=== PATIENT | male | born 1970 | race Caucasian/White ===

== ENCOUNTER 2016-05-26 18:20 | Emergency (ER) | payer MEDICAID ==
[~2016-05-26] VITALS: Ht 162.6 cm; Wt 86.3 kg
[2016-05-26 18:28] VITALS: Ht 162.6 cm; Wt 86.3 kg
--- NOTE | 2016-05-26 19:05 | ERD ---
ER Documentation Chief Complaint Date/Time DATE: 05/26/16 TIME: 19:01 Chief Complaint Pt reports falling on escalator 1 week ago c/o r knee pain HPI 46-year-old male presents here in emergency department for complaints of right knee pain and right upper thigh pain and right lower leg pain after falling in an escalator one week ago. Patient noticed some bruising, complains of pain on the right knee, right thigh pain, right lower leg pain, throbbing pain, a physician scale, is worse upon movement and touching the area. Patient did not take medications of symptoms. Patient denies any deformity. Patient denies any numbness or tingling. Patient able to ambulate on it without any difficulty but with pain. ROS All systems reviewed and are negative except as per history of present illness. Medications Home Meds Reported Medications [none] Unknown Strength No Conflict Check 05/26/16 Allergies Allergies: Coded Allergies: No Known Allergy (Unverified , 02/20/14) PMhx/Soc Medical and Surgical Hx: pt denies Medical Hx, pt denies Surgical Hx Hx Alcohol Use: No Hx Substance Use: No Hx Tobacco Use: No Smoking Status: Never smoker FmHx Family History: No coronary disease, No diabetes, No other Physical Exam Vitals Vital Signs Date Time Temp Pulse Resp B/P Pulse Ox O2 Delivery O2 Flow Rate FiO2 05/26/16 18:28 98.3 72 16 121/78 97 Physical Exam GENERAL: The patient is well developed and appropriate for usual state of health, in no apparent distress. CHEST: Clear to auscultation bilaterally. There are no rales, wheezes or rhonchi. HEART: Regular rate and rhythm. No murmurs, clicks, rubs or gallops. No S3 or S4. ABDOMEN: Soft, nontender and nondistended. Good bowel sounds. No rebound or guarding. No gross peritonitis. No gross organomegaly or masses. No Giraldo sign or McBurney point tenderness. BACK: No midline or flank tenderness. EXTREMITIES: Able to do full range of motion motion of the right knee without any restriction, he noted some bruising on the right thigh and right lower leg area, tenderness on palpation. No open wounds noted. Equal pulses bilaterally. Full range of motion of other joints of the body. Grossly neurovascularly intact. NEURO: Alert and oriented. Cranial nerves 2-12 intact. Motor strength in all 4 extremities with 5/5 strength. Sensation grossly intact. Normal speech and gait. SKIN: There is no apparent rash or petechia. The skin is warm and dry. HEMATOLOGIC AND LYMPHATIC: There is no evidence of excessive bruising or lymphedema. No gross cervical, axillary, or inguinal lymphadenopathy. Results 24 hrs PROCEDURE: Right femur x-ray CLINICAL INDICATION: Fall with pain in the right thigh TECHNIQUE: AP and lateral views of the femur were obtained. COMPARISON: None FINDINGS: There is normal mineralization. No acute fracture or dislocation is seen. There are no significant degenerative changes. There is no significant soft tissue swelling. IMPRESSION: Normal x-ray of the right femur. RPTAT: [facility] Physician Jules Date Time Electronically viewed and signed by Physician Jules on 05/26/2016 19:52 RS/ CC: MARCIE CAMERON NP PROCEDURE: Left knee x-ray CLINICAL INDICATION: Right knee pain. The patient is status post fall TECHNIQUE: AP, lateral and oblique views of the left knee were obtained. COMPARISON: None FINDINGS: There is normal mineralization. No acute fracture or dislocation is seen. There are no significant degenerative changes. There is no joint effusion. There is no significant soft tissue swelling. IMPRESSION: Normal x-ray of the left knee. RPTAT: [facility] Physician Jules Date Time Electronically viewed and signed by Physician Jules on 05/26/2016 19:51 PROCEDURE: XR right tibia/fibula. CLINICAL INDICATION: Leg pain TECHNIQUE: Two views available for review. COMPARISON: None available FINDINGS: The osseous structures are normal in mineralization, architecture and alignment. No fractures are identified. No osseous lesions are identified. The joints are unremarkable. The soft tissues are unremarkable. IMPRESSION: Unremarkable examination RPTAT: HGDB .Karel Blackwell MD, MD Date Time Electronically viewed and signed by .Karel Blackwell MD, on 05/26/2016 19:56 After receiving patients xray report, a _knee immobilizer was applied on the patients __right knee_. After application of the splint, patient has intact sensation and circulation on distal area of the affected joint. Patient does not complain of numbness or tingling after application of the splint. Patient tolerated procedure well. Crutches was given to use afterwards. Procedures/MDM Medical Decision Making: Patient's pain is most likely consistent with a contusion or a sprain. There is no suspicion for neurovascular compromise. Patient has intact sensation and circulation of the affected extremity. There is low suspicion for septic arthritis. Patient does not have any fever. Radiology exams of the affected area does not show any fracture or dislocation. Disposition: Home. Patient is given prescription for ibuprofen for pain, [place] for severe pain. Patient was advised to elevate the affected area and apply ice on affected area. Patient was advised that if symptoms are worse, numbness, tingling, high fever, unable to move joint, worsening symptoms, to return to emergency department immediately. Otherwise, patient is advised to follow up with the primary care doctor in 5-7 days for reevaluation of symptoms. Request for MRI with primary care doctor if symptoms continues to persist. Departure Diagnosis: Primary Impression: Knee pain Laterality: right Chronicity: acute Qualified Code: M25.561 - Acute pain of right knee Additional Impressions: Right thigh pain Right leg pain Condition: Stable Patient Instructions: Contusion, Lower Extremity, Knee Sprain Additional Instructions: Patient is given prescription for ibuprofen for pain, [place] for severe pain. Patient was advised to elevate the affected area and apply ice on affected area. Patient was advised that if symptoms are worse, numbness, tingling, high fever, unable to move joint, worsening symptoms, to return to emergency department immediately. Otherwise, patient is advised to follow up with the primary care doctor in 5-7 days for reevaluation of symptoms. Request for MRI with primary care doctor if symptoms continues to persist. MARCIE CAMERON NP May 26, 2016 19:05
--- NOTE | 2016-05-26 19:51 | RADRPT ---
PROCEDURE: Left knee x-ray CLINICAL INDICATION: Right knee pain. The patient is status post fall TECHNIQUE: AP, lateral and oblique views of the left knee were obtained. COMPARISON: None FINDINGS: There is normal mineralization. No acute fracture or dislocation is seen. There are no significant degenerative changes. There is no joint effusion. There is no significant soft tissue swelling. IMPRESSION: Normal x-ray of the left knee. RPTAT: [facility] Physician Jules Date Time Electronically viewed and signed by Physician Jules on 05/26/2016 19:51 RS/
--- NOTE | 2016-05-26 19:52 | RADRPT ---
PROCEDURE: Right femur x-ray CLINICAL INDICATION: Fall with pain in the right thigh TECHNIQUE: AP and lateral views of the femur were obtained. COMPARISON: None FINDINGS: There is normal mineralization. No acute fracture or dislocation is seen. There are no significant degenerative changes. There is no significant soft tissue swelling. IMPRESSION: Normal x-ray of the right femur. RPTAT: [facility] Physician Jules Date Time Electronically viewed and signed by Physician Jules on 05/26/2016 19:52 RS/
--- NOTE | 2016-05-26 19:57 | RADRPT ---
PROCEDURE: XR right tibia/fibula. CLINICAL INDICATION: Leg pain TECHNIQUE: Two views available for review. COMPARISON: None available FINDINGS: The osseous structures are normal in mineralization, architecture and alignment. No fractures are i dentified. No osseous lesions are identified. The joints are unremarkable. The soft tissues are u nremarkable. IMPRESSION: Unremarkable examination RPTAT: HGDB .Karel Blackwell MD, MD Date Time Electronically viewed and signed by .Karel Blackwell MD, on 05/26/2016 19:56 .B/
[2016-05-26] MEDS ORDERED: IBUP-1542 PO (20:00)
[2016-05-26] MEDS ORDERED: HYDR-906 PO (20:00)
[2016-05-26 20:17] VITALS: BP 120/80; PULSE 68; RESP 16; TEMP 98.3
== END 2016-05-26 20:17 | disposition home or self-care (01) ==
LOC: FTE 18:20
DX: S89.91XA Unspecified injury of right lower leg, initial encounter (principal); S79.921A Unspecified injury of right thigh, initial encounter; W10.0XXA Fall (on)(from) escalator, initial encounter; Y92.9 Unspecified place or not applicable
CPT/HCPCS: 29505; 73550; 73562; 73590; Z7502

== ENCOUNTER 2017-02-18 19:56 | Emergency (ER) | END 2017-02-18 21:50 | disposition left against medical advice (07) ==

== ENCOUNTER 2019-02-02 19:02 | Emergency (ER) | payer MEDICAID ==
[~2019-02-02] VITALS: Ht 160 cm; Wt 86.6 kg
[~2019-02-02 19:02] MED LIST: FEXO180T61 PO; FLUT9.9S NASAL; HYDR-4011 PO; IBUP-1542 PO; PRED20TA PO
[2019-02-02 19:25] VITALS: BP 133/81; PULSE 64; RESP 16; Ht 160 cm; Wt 86.6 kg
== END 2019-02-02 19:44 | disposition home or self-care (01) ==
LOC: E/R 19:02
DX: J30.9 Allergic rhinitis, unspecified (principal)
CPT/HCPCS: 99283